=== PATIENT | female | born 2000 | race Hispanic/Latino ===

== ENCOUNTER 2022-06-27 02:12 | Emergency (ER) | payer MEDICAID, OTHER ==
[~2022-06-27] VITALS: Ht 162.6 cm; Wt 62.7 kg
[2022-06-27 03:20] LABS: BASOPHILS % (AUTO) 0.5 % (0.0-5.0); CREATININE 0.8 mg/dL (0.5-1.5); EOSINOPHILS % (AUTO) 0.8 % (0.0-8.0); HEMATOCRIT 43.3 % (36-48); LYMPHOCYTES % (AUTO) 24.5 % (21.0-51.0); MEAN CORPUSCULAR HEMOGLOBIN 29.5 pg (27.0-33.0); MEAN CORPUSCULAR HGB CONC 33.5 g/dL (32.0-36.0); MEAN CORPUSCULAR VOLUME 88.2 fL (79-99); MONOCYTES % (AUTO) 8.1 % (3.0-13.0); NEUTROPHILS % (AUTO) 65.8 % (40.0-77.0); PLATELET COUNT (AUTO) 301 K/uL (130-400); POTASSIUM 3.5 mmol/L (3.5-5.1); RED BLOOD CELL COUNT(AUTO) 4.91 MIL/uL (4.00-5.50); RED CELL DISTRIBUTION WIDTH 12.7 % (11.0-15.5); WHITE BLOOD COUNT (AUTO) 7.5 K/uL (4.8-10.8)
[2022-06-27 03:24] LABS: ALBUMIN 5.5 g/dL (3.5-5.0); TOTAL PROTEIN, SERUM 8.8 g/dL (6.0-8.3)
[2022-06-27] MEDS ORDERED: DOXYCYCLINE HYCLATE 100 MG TABLET PO SCH (05:00)
[2022-06-27] MEDS ORDERED: CEFTRIAXONE 500MG VIAL IM ONE (05:00)
[2022-06-27] MEDS ORDERED: METR-172 PO (05:02)
[2022-06-27] MEDS ORDERED: DOXY-469 PO (05:02)
[2022-06-27] MEDS ORDERED: IBUP-2070 PO (05:02)
[2022-06-27] MEDS ORDERED: ONDANSETRON ODT 4MG TAB ONE (05:11)
[2022-06-27 05:16] VITALS: BP 127/65
[2022-06-27] MEDS ORDERED: ONDANSETRON ODT 4MG TAB SL ONE (05:30)
== END 2022-06-27 05:18 | disposition home or self-care (01) ==
LOC: EDH 02:12
DX: N93.8 Other specified abnormal uterine and vaginal bleeding (principal); N73.8 Other specified female pelvic inflammatory diseases; R63.4 Abnormal weight loss; Z98.890 Other specified postprocedural states
CPT/HCPCS: 99285; 76856; 84443; 80053; 85025; 87797; 87486; 81025; 36415; 96372; J0696